=== PATIENT | male | born 1975 | race Hispanic/Latino ===

== ENCOUNTER 2017-02-16 11:10 | Emergency (ER) | payer SELFPAY, MEDICAID ==
--- NOTE | 2017-02-16 11:37 | ED PDOC ---
Arrival/HPI - General Chief Complaint: Substance Abuse Time Seen by Provider: 02/16/17 11:19 Historian: Patient, Police - History of Present Illness Narrative History of Present Illness (Text): 02/16/17 11:20 A 41 year old male, with no known past medical history, is brought in by [facility] and presents to the emergency department for possible substance abuse. Patient seems confused and answers with one word responses. Per [employer], patient was at work and went to the break room. After leaving break room , patient was acting "funny" and was not responsive. foreign service officer search break room for any possible substance use but has not found anything. Patient denies of any pain, suicidal ideation, or any other complaints at this time. Also, patient denies any EtOH or substance abuse, and currently smokes. Patient is a new employee at his job and not much information is known about him. No PMD Past Medical History - Provider Review Nursing Documentation Reviewed: Yes - Infectious Disease Hx of Infectious Diseases: None - Psychiatric Hx Substance Use: Yes (unknown substance) Family/Social History - Physician Review Nursing Documentation Reviewed: Yes Family/Social History: No Known Family HX Smoking Status: Smoker Currrent Status Unknown Hx Alcohol Use: Yes Frequency of alcohol use: Socially Hx Substance Use: Yes (unknown substance) Allergies/Home Meds Allergies/Adverse Reactions: Allergies No Known Allergies Allergy (Verified 02/16/17 11:37) Home Medications: Home Meds Medication Instructions Recorded Confirmed No Known Home Med 02/16/17 02/16/17 Review of Systems - Physician Review All systems were reviewed & negative as marked: Yes - Review of Systems Constitutional: absent: Other (patient denies of any pain) Psychiatric: absent: Suicidal Ideation Physical Exam Vital Signs Reviewed: Yes Vital Signs Temp Pulse Resp BP Pulse Ox 02/16/17 11:25 98.3 F 65 18 152/39 H 99 Temperature: Afebrile Blood Pressure: Normal Pulse: Regular Respiratory Rate: Normal Appearance: Positive for: Well-Appearing Pain Distress: None Mental Status: Positive for: Confused (patient appears confused and answers with one word responses) - Systems Exam Head: Present: Atraumatic, Normocephalic Pupils: Present: PERRL Extroacular Muscles: Present: EOMI Conjunctiva: Present: Normal Mouth: Present: Moist Mucous Membranes Neck: Present: Normal Range of Motion Respiratory/Chest: Present: Clear to Auscultation, Good Air Exchange. No: Respiratory Distress, Accessory Muscle Use Cardiovascular: Present: Regular Rate and Rhythm, Normal S1, S2. No: Murmurs Abdomen: Present: Normal Bowel Sounds. No: Tenderness, Distention, Peritoneal Signs Back: Present: Normal Inspection Upper Extremity: Present: Normal Inspection. No: Cyanosis, Edema Lower Extremity: Present: Normal Inspection. No: Edema Neurological: Present: GCS=15, CN II-XII Intact. No: Speech Normal (hesitant speech, offering only one word responses) Skin: Present: Warm, Dry, Normal Color. No: Rashes Psychiatric: Present: Alert, Oriented x 3, Normal Insight, Normal Concentration Medical Decision Making ED Course and Treatment: 02/16/17 11:25 Impression: 41 year old male brought in for possible substance abuse. Physical exam shows patient appears confused; neuro: hesitant speech, giving one word responses. Plan: -- Head CT -- Labs -- Reassess and disposition Prior Visits: Notes and results from previous visits were reviewed. Patient was last seen in the emergency department on 06/09/2014 for dental/neck pain. Progress Notes: 02/16/2017 12:[address] IMPRESSION: No acute findings. Dictator: Delfino Coppola MD 02/16/17 12:438 Positive for PCP. Patient is getting better and is more awake. - Lab Interpretations Lab Results: 02/16/17 11:55 02/16/17 11:55 Lab Results 02/16/17 12:00: Urine Opiates Screen Negative, Urine Methadone Screen Negative, Ur Barbiturates Screen Negative, Ur Phencyclidine Scrn Positive H, Ur Amphetamines Screen Negative, U Benzodiazepines Scrn Negative, U Oth Cocaine Metabols Negative, U Cannabinoids Screen Negative 02/16/17 11:55: Alcohol, Quantitative < 10 02/16/17 11:55: Sodium 138, Potassium 3.9, Chloride 104, Carbon Dioxide 25, Anion Gap 12, BUN 8, Creatinine 0.9, Est GFR ( Amer) > 60, Est GFR (Non- Af Amer) > 60, Random Glucose 97, Calcium 9.4, Total Bilirubin 0.7, AST 30, ALT 31, Alkaline Phosphatase 78, Total Protein 7.7, Albumin 4.2, Globulin 3.5, Albumin/Globulin Ratio 1.2 02/16/17 11:55: WBC 5.0, RBC 4.56, Hgb 14.9, Hct 41.7 L, MCV 91.4, MCH 32.7, MCHC 35.7, RDW 13.0, Plt Count 190, MPV 10.7, Gran % 46.9 L, Lymph % (Auto) 38.8 H, Mingo % (Auto) 8.5 H, Eos % (Auto) 5.6 H, Baso % (Auto) 0.2, Gran # 2.36 , Lymph # 2.0, Mingo # 0.4, Eos # 0.3, Baso # 0.01 02/16/17 11:35: POC Glucose (mg/dL) 80 - RAD Interpretation Radiology Orders: 02/16/17 11:42 HEAD W/O CONTRAST [CT] Stat - Scribe Statement The provider has reviewed the documentation as recorded by the Jeovannyibyenni Paula Provider Scribe Attestation: All medical record entries made by the Scribe were at my direction and personally dictated by me. I have reviewed the chart and agree that the record accurately reflects my personal performance of the history, physical exam, medical decision making, and the department course for this patient. I have also personally directed, reviewed, and agree with the discharge instructions and disposition. Disposition/Present on Arrival - Present on Arrival Any Indicators Present on Arrival: No History of DVT/PE: No History of Uncontrolled Diabetes: No Urinary Catheter: No History of Decub. Ulcer: No History Surgical Site Infection Following: None - Disposition Have Diagnosis and Disposition been Completed?: Yes Diagnosis: Substance abuse Disposition: HOME/ ROUTINE Disposition Time: 13:15 Patient Plan: Discharge Patient Problems: Current Active Problems Problem Status Onset Substance abuse Acute Condition: GOOD Discharge Instructions (ExitCare): Polysubstance Abuse (ED) Referrals: Oxagen Evy Sweet, [Primary Care Provider] - Follow up with primary Forms: [employer] (Danish)
[2017-02-16 11:38] VITALS: RESP 18
[2017-02-16 12:07] LABS: BASO # 0.01 K/mm3 (0.0-2.0); BASO % 0.2 % (0.0-3.0); EOS # 0.3 (0.0-0.7); EOS % 5.6 % (1.5-5.0); GRAN # 2.36 (1.4-6.5); GRAN % 46.9 % (50.0-68.0); HEMATOCRIT 41.7 % (42.0-52.0); LYMPH % 38.8 % (22.0-35.0); MEAN CELL VOLUME 91.4 fl (80.0-105.0); MEAN CORPUSCULAR HEMOGLOBIN 32.7 pg (25.0-35.0); MEAN CORPUSCULAR HGB CONC 35.7 g/dl (31.0-37.0); MEAN PLATELET VOLUME 10.7 fl (7.0-11.0); MONO # 0.4 (0.1-0.6); MONO % 8.5 % (1.0-6.0)
[2017-02-16 12:12] LABS: ALB/GLOB RATIO 1.2 (1.1-1.8); ALKALINE PHOSPHATASE 78 U/L (38-126); ALT/SGPT 31 U/L (7-56); AST/SGOT 30 U/L (17-59); BILIRUBIN,TOTAL 0.7 mg/dL (0.2-1.3); BLOOD UREA NITROGEN 8 mg/dL (7-21); CALCIUM 9.4 mg/dL (8.4-10.5); CARBON DIOXIDE 25 mmol/L (21-33); CHLORIDE 104 mmol/L (98-107); GFR AFRICAN-AMERICAN > 60; GLUCOSE,RANDOM 97 mg/dL (70-110); POTASSIUM 3.9 mmol/L (3.6-5.0); SODIUM 138 mmol/L (132-148); TOTAL PROTEIN 7.7 g/dL (5.8-8.3)
--- NOTE | 2017-02-16 12:30 | CT ---
PROCEDURE: CT HEAD WITHOUT CONTRAST. HISTORY: mental status change COMPARISON: None available. TECHNIQUE: Axial computed tomography images were obtained through the head/brain without intravenous contrast. Radiation dose: Total exam DLP = 825 mGy-cm. This CT exam was performed using one or more of the following dose reduction techniques: Automated exposure control, adjustment of the mA and/or kV according to patient size, and/or use of iterative reconstruction technique. FINDINGS: HEMORRHAGE: No intracranial hemorrhage. BRAIN: No mass effect or edema. No atrophy or chronic microvascular ischemic changes. VENTRICLES: Unremarkable. No hydrocephalus. CALVARIUM: Unremarkable. PARANASAL SINUSES: Unremarkable as visualized. No significant inflammatory changes. MASTOID AIR CELLS: Unremarkable as visualized. No inflammatory changes. OTHER FINDINGS: None. IMPRESSION: No acute finding
[2017-02-16 13:24] VITALS: TEMP 98.2; O2SAT 98
[2017-02-16 16:20] VITALS: BP 134/80; PULSE 88
--- NOTE | 2017-02-16 18:38 | CARD ---
APPROVED REPORT EKG Measurement Heart [id number] <Conclusion> Normal sinus rhythm Nonspecific intraventricular block Abnormal ECG
== END 2017-02-16 16:20 | disposition home or self-care (01) ==
LOC: ED 11:10
DX: F19.10 Other psychoactive substance abuse, uncomplicated (principal)

== ENCOUNTER 2018-01-12 18:23 | Emergency (ER) | payer MEDICAID ==
[2018-01-12 18:42] VITALS: BMI 22.4
[2018-01-12 18:47] VITALS: BP 130/76; PULSE 90; RESP 18; TEMP 98.2; O2SAT 98
--- NOTE | 2018-01-12 18:47 | ED PDOC ---
Arrival/HPI - General Chief Complaint: Substance Abuse Time Seen by Provider: 01/12/18 18:35 Historian: Patient, EMS, Police - History of Present Illness Time/Duration: Prior to Arrival Symptom Course: Unchanged Severity Level: Mild Associated Symptoms (Text): 01/12/18 18:45 Patient reports that he used PCP several hours ago. Apparently he was acting bi zarre previously. He is awake alert cooperative, and in no distress. He spoke with his on the telephone who is now here. She reports that he does have a PCP problem and she is willing to take him home and assume responsibility for him. Past Medical History - Infectious Disease Hx of Infectious Diseases: None - Psychiatric Hx Substance Use: Yes (unknown substance) Family/Social History - Physician Review Nursing Documentation Reviewed: Yes Family/Social History: Unknown Family HX Smoking Status: Heavy Smoker > 10 Cigarettes Daily Hx Alcohol Use: Yes Frequency of alcohol use: Socially Hx Substance Use: Yes (unknown substance) Substance used: PCP Allergies/Home Meds Allergies/Adverse Reactions: Allergies No Known Allergies Allergy (Verified 02/16/17 11:37) Home Medications: Home Meds Medication Instructions Recorded Confirmed No Known Home Med 02/16/17 02/16/17 Review of Systems - Physician Review All systems were reviewed & negative as marked: Yes - Review of Systems Constitutional: Normal Respiratory: Normal Cardiovascular: Normal Gastrointestinal: Normal Neurological: Normal Physical Exam Temperature: Afebrile Blood Pressure: Normal Pulse: Regular Respiratory Rate: Normal Appearance: Positive for: Well-Appearing, Non-Toxic, Comfortable Pain Distress: None Mental Status: Positive for: Alert and Oriented X 3 - Systems Exam Head: Present: Atraumatic, Normocephalic Pupils: Present: PERRL Extroacular Muscles: Present: EOMI Conjunctiva: Present: Normal Neck: Present: Normal Range of Motion Respiratory/Chest: Present: Clear to Auscultation, Good Air Exchange. No: Respiratory Distress, Accessory Muscle Use Cardiovascular: Present: Regular Rate and Rhythm, Normal S1, S2. No: Murmurs Abdomen: No: Tenderness, Distention, Peritoneal Signs Upper Extremity: Present: Normal Inspection. No: Cyanosis, Edema Lower Extremity: Present: Normal Inspection. No: Edema Neurological: Present: GCS=15, CN II-XII Intact, Speech Normal, Motor Func Grossly Intact Skin: Present: Warm, Dry, Normal Color. No: Rashes Disposition/Present on Arrival - Present on Arrival Any Indicators Present on Arrival: No History of DVT/PE: No History of Uncontrolled Diabetes: No Urinary Catheter: No History of Decub. Ulcer: No History Surgical Site Infection Following: None - Disposition Have Diagnosis and Disposition been Completed?: Yes Diagnosis: Substance abuse Disposition: HOME/ ROUTINE Disposition Time: 18:49 Patient Plan: Discharge Condition: GOOD Discharge Instructions (ExitCare): Drug Abuse and Drug Addiction (DC), Drug Abuse Treatment Forms: [employer] (Icelandic)
== END 2018-01-12 18:58 | disposition home or self-care (01) ==
LOC: ED 18:23
DX: F19.10 Other psychoactive substance abuse, uncomplicated (principal); F17.210 Nicotine dependence, cigarettes, uncomplicated